=== PATIENT | female | born 1990 | race Caucasian/White ===

== ENCOUNTER 2022-02-18 14:07 | Emergency (ER) | payer OTHER, SELFPAY ==
--- NOTE | ~2022-02-18 | CT_ITS ---
EXAMINATION: CT ABDOMEN AND PELVIS WITHOUT CONTRAST CLINICAL INFORMATION: Bilateral flank pain and urinary symptoms COMPARISON: None TECHNIQUE: Multidetector volumetric imaging was performed from the superior aspect of the liver through the pubic symphysis. Sagittal and coronal reformatted images were obtained on the technologist's workstation. This CT examination was performed using dose optimization techniques as appropriate, variously including the following: *Automated exposure control *Adjustment of mA and/or kV according to patient size (this includes techniques or standardized protocols for targeted exams where dose is matched to indication/reason for exam; i.e. extremities or head) *Use of iterative reconstruction technique DLP: 544 mGy-cm FINDINGS: LUNG BASES: The visualized lung bases are unremarkable. LIVER, GALLBLADDER, AND BILIARY TREE: The liver is normal in size, shape, and attenuation. No focal hepatic lesion or biliary ductal dilatation is present. The gallbladder is unremarkable with no evidence of radiopaque gallstones, gallbladder wall thickening, or obvious pericholecystic inflammatory changes. PANCREAS: Unremarkable. SPLEEN: Unremarkable. ADRENAL GLANDS: Unremarkable. KIDNEYS AND URETERS: The kidneys are normal in size, shape, and attenuation. There is bilateral nephrolithiasis. Largest stone on the images in the lower pole measuring 0.8 cm. A few other small punctate calculi are present on the left. On the right, 2 tiny punctate calcifications are seen. Large calculus at the left lower pole measures 1156 Hounsfield units and is 8 cm from the posterior axillary line. No hydronephrosis, hydroureter, or ureteral calculi seen. No perinephric stranding. BLADDER: Bladder calculi are seen. A small solid parenchymal remnant is present. GASTROINTESTINAL TRACT: The small and large bowel are unremarkable. The appendix is unremarkable. ABDOMINAL WALL: No significant hernia is appreciated. Some mild diastases of the rectus muscles. LYMPH NODES: No retroperitoneal lymphadenopathy. VASCULAR: Unremarkable. PELVIC VISCERA: Normal anteverted uterus. An abnormal adnexal mass or free intraperitoneal fluid is not seen. OSSEOUS STRUCTURES: Unremarkable. CT/CT abdomen pelvis wo con IMPRESSION: 1. Bilateral nonobstructing nephrolithiasis with the largest stone measuring 5 mm on the left. 2. Other incidental findings described above including a small urachal remnant. Fleischner guidelines were followed.
[2022-02-18 14:49] VITALS: BP 117/69; PULSE 79; RESP 18; TEMP 37.1; O2SAT 98; BMI 34.0
[2022-02-18 16:32] LABS: MANUAL DIFF FLAG NO
[2022-02-18 16:34] LABS: Basophils Absolute Auto 0.1 X10*3/uL (0.0-0.2); Basophils Percent Auto 0.5 % (0-2); Eosinophils Absolute Auto 0.3 X10*3/uL (0.0-0.4); Eosinophils Percent Auto 2.4 % (0-4); Hematocrit 36.4 % (37.0-47.0); Hemoglobin 12.3 g/dl (12.0-16.0); Imm Gran Abs Auto 0.07 X10*3/uL (0.00-0.03); Imm Gran Pct Auto 0.6 % (0.0-0.4); Lymphocytes Absolute Auto 2.7 X10*3/uL (1.2-4.9); Mean Corpuscular HGB Conc 33.8 g/dl (31.0-35.0); Mean Corpuscular Hemoglobin 28.6 pg (27.0-33.0); Mean Corpuscular Volume 84.7 fL (80.0-98.0); Mean Platelet Volume 9.5 fL (9.4-12.3); Monocytes Absolute Auto 0.9 X10*3/uL (0.1-1.2); Monocytes Percent Auto 7.7 % (2-11); Neutrophils Percent Auto 63.8 % (45-73); Platelet Count 297 X10*3/uL (160-400); Red Cell Distribution Width 12.4 % (11.0-16.0)
[2022-02-18 16:40] LABS: Appearance Urine CLEAR; Color Urine STRAW; Glucose Urine UA NEG (NEG); Leukocyte Esterase Urine NEG (NEG); Nitrite Urine NEG (NEG); Specific Gravity - Urine <= 1.005 (1.005-1.025); Urine Blood NEG (NEG); Urine Ketones NEG (NEG); Urine Protein NEG (NEG-TRACE)
[2022-02-18 16:42] LABS: UPreg QC Valid YES; Urine Pregnancy NEGATIVE (NEGATIVE)
[2022-02-18 16:52] LABS: Alanine Aminotransferase 43 U/L (0-31); Albumin Level 4.7 g/dL (3.5-5.0); Alkaline Phosphatase 70 U/L (39-117); Anion Gap 15 (12-20); Aspartate Amino Transferase 23 U/L (5-31); Bilirubin Total 0.3 mg/dL (0.0-1.0); Blood Urea Nitrogen 12 mg/dL (9-16); Calcium 9.2 mg/dL (8.4-10.2); Carbon Dioxide 27 mmol/L (22-29); Chloride 104 mmol/L (96-108); Creatinine Clr Calc Pharmacy 118.8; Estimated Glomerular Filt Rate > 60; Glucose Random 90 mg/dL (60-115); Potassium 4.2 mmol/L (3.3-5.1); Sodium 142 mmol/L (135-145); Total Protein 7.5 g/dL (6.5-8.0)
--- NOTE | 2022-02-18 20:45 | ED.FEMALEGU ---
HPI - Female Genitourinary General Chief complaint: Urogenital-Female Stated complaint: back pain, uti? Time Seen by Provider: 02/18/22 17:36 Source: patient Mode of arrival: ambulatory Limitations: no limitations History of Present Illness HPI Narrative: 31 year old female with a history significant for renal stones not requiring lithotripsy presents to the ED with a complaint of bilateral lower back pain/ cramping since 10am this morning. She tells me that over the past two months she has had symptoms of bladder fullness, foul smelling urine, and urine retention, waking up multiple times at night to urinate and lower back pain and cramping. She's been diagnosed with and treated for 3 UTIs over this time without relief of symptoms. Due to symptom persistence she saw her PCP on Saturday for a UA which returned positive for UTI, pending culture. This morning she woke up with bilateral lower back pain and cramping with associated nausea and dizziness lasting for a few minutes. She called her PCPs office who advised her to come to the ED for further work up. Denies fever, dysuria, urgency, hematuria, urine discoloration, bowel/ bladder incontinence, vaginal discharge or itching, abdominal pain, nausea, vomiting, diarrhea, constipation or saddle paresthesia, pelvic pain. Denies history of gout or IVDU. Denies concern for STI. Patient had a PAP smear one month ago which returned unremarkable. Pertinent past history: recurrent UTIs Location of symptoms: low back Female Urogenital Radiation: Non-Radiating Related Data Allergies Allergy/AdvReac Type Severity Reaction Status Date / Time peach [PEACH] Allergy Severe HIVES Unverified 03/31/20 19:16 sulfamethoxazole Allergy Intermediate RASH AND Unverified 03/31/20 19:16 [From BACTRIM] FEVER trimethoprim [From BACTRIM] Allergy Intermediate RASH AND Unverified 03/31/20 19:16 FEVER HADOCK Allergy Severe PROPERTY COORDINATOR Uncoded 03/31/20 19:16 TOLD PT NOT TO HAVE HADOCK Bactrim Allergy Unknown rash Uncoded 06/20/18 00:00 Review of Systems Review of Systems: Constitutional : No Weight loss, No Fever, No Chills, No Fatigue, No Malaise ENT/Mouth : No sore throat, No Rhinorrhea Eyes: No Eye Pain, No Swelling, No Redness Cardiovascular : No Chest Pain, No SOB, No Dyspnea on Exertion, No Orthopnea, No Edema, No Palpitations Respiratory : No Cough, No Sputum, No Wheezing Gastrointestinal : No Nausea, No Vomiting, No Diarrhea, No Constipation, No abdominal Pain, No Hematochezia, No Melena Genitourinary : No Dysuria, No Urinary Frequency, No Hematuria, +urinary retention, + foul smelling urine, + bladder fullness Musculoskeletal : No joint pain, No Myalgias, No Joint Swelling, +low back pain (bilateral) Skin : No Skin Lesions, No rash Neuro : No Weakness, No Numbness, No Dizziness, No Headache All other systems reviewed and are negative Yes all other systems are reviewed and are negative [facility], [facility] Past Medical History Attestation statement: The following information was validated with the patient. Source: old records reviewed and nursing notes reviewed Social History Social History Advance Directives: No Advance Directives Information Provided: No Patient : No Physical Exam Vital Signs: Vital Signs: Last Vital Signs Temp 98.6 F 02/18/22 20:56 Pulse 68 02/18/22 20:56 Resp 16 02/18/22 20:56 BP 120/71 02/18/22 20:56 Pulse Ox 99 02/18/22 20:56 O2 Del Method 02/18/22 20:56 BMI result Body Mass Index 34.0 VSS Appearance: Alert.? Oriented X3.? No acute distress.? Head: Normocephalic, atraumatic, no step-offs or deformities Eyes: Pupils equal, round and reactive to light.? Neck: Normal inspection.? Neck supple.? CVS: Normal heart rate and rhythm.? Pulses normal.? Respiratory: No respiratory distress.? Breath sounds normal.? Abdomen: Soft and nontender.?nondistended Skin: Skin warm and dry.? Normal skin color.? Normal skin turgor.? Extremities: No lower extremity edema.? No calf ttp. 5/5 strength to bilateral upper and lower extremities. 2+ patellar reflexes equal bilateral. Back: No midline tenderness, no C-spine tenderness, full range of motion, no CVA tenderness bilaterally, able to stand and ambulate without issue Neuro: Oriented X 3.? No motor deficit.? No sensory deficit. Course Reevaluation(s) Reevaluation #1: CBC with slight leukocytosis, chemistry with no acute electrolyte abnormalities. Urine clean, negative. No signs of acute urinary retention at this time. Time: 00:50 Reevaluation #2: CT of the abdomen and pelvis with stones noted within the bladder, and bilateral nonobstructing nephrolithiasis. Patient likely passing kidney stones. Also incidental finding of a small urachal remnant noted, I advised patient to follow-up with urology for this, symptoms consistent with this. At this time will discharge patient home advised to take ibuprofen every 6 hours, Tylenol every 4 as needed for pain or discomfort. Advised for prompt PCP and urology follow-up. I also advised her to drink plenty of fluids. No need for antibiotics at this time. I did discuss this case w/ my attending who agree w/ dx and tx plan. Time: 01:18 MDM - Female Genitourinary MDM Narrative Medical decision making narrative: 2013 31 year old female presenting with two months of bladder fullness, foul smellling urine, and urinary retention X2 months . History of renal stones during , not requiring lithotripsy. Physical exam benign. No saddle paresthesia or bowel/ bladder incontinence. History and physical examination concerning for possible cystitis, UTI or pyelo. Unlikely cauda equina or epidural abscess. Patient denies any pelvic pain, vaginal bleeding, unlikely that this is ovarian torsion. Plan basic labs, UA, bladder scan. Medical Records Attestation: I reviewed the patient's medical records. Lab Data Attestation: I reviewed the patient's lab results. Result diagrams: 02/18/22 16:26 02/18/22 16:26 Labs: Lab Results 02/18/22 02/18/22 02/18/22 Range/Units 16:26 16:26 16:26 WBC 11.0 H (4.8-10.8) X10*3/uL RBC 4.30 (4.20-5.50) X10*6/uL Hgb 12.3 (12.0-16.0) g/dl Hct 36.4 L (37.0-47.0) % MCV 84.7 (80.0-98.0) fL MCH 28.6 (27.0-33.0) pg MCHC 33.8 (31.0-35.0) g/dl RDW 12.4 (11.0-16.0) % Plt Count 297 (160-400) X10*3/uL MPV 9.5 (9.4-12.3) fL Immature Gran % (Auto) 0.6 H (0.0-0.4) % Neut % (Auto) 63.8 (45-73) % Lymph % (Auto) 25.0 (20-40) % [place] % (Auto) 7.7 (2-11) % Eos % (Auto) 2.4 (0-4) % Baso % (Auto) 0.5 (0-2) % Lymph # (Auto) 2.7 (1.2-4.9) X10*3/uL [place] # (Auto) 0.9 (0.1-1.2) X10*3/uL Eos # (Auto) 0.3 (0.0-0.4) X10*3/uL Baso # (Auto) 0.1 (0.0-0.2) X10*3/uL Abs Immat Gran (auto) 0.07 H (0.00-0.03) X10*3/uL Absolute Neuts (auto) 7.0 (2.0-8.3) x10*3/uL Absolute Nucleated RBC 0.000 (0.0-0.012) X10*3/uL Nucleated RBC % (auto) 0.0 (0.0-0.2) /100WBC Sodium 142 (135-145) mmol/L Potassium 4.2 (3.3-5.1) mmol/L Chloride 104 (96-108) mmol/L Carbon Dioxide 27 (22-29) mmol/L Anion Gap 15 (12-20) BUN 12 (9-16) mg/dL Creatinine 0.67 (0.5-1.4) mg/dL Estim Creat Clear Calc 118.8 Estimated GFR > 60 Random Glucose 90 (60-115) mg/dL Calcium 9.2 (8.4-10.2) mg/dL Total Bilirubin 0.3 (0.0-1.0) mg/dL AST 23 (5-31) U/L ALT 43 H (0-31) U/L Alkaline Phosphatase 70 (39-117) U/L Total Protein 7.5 (6.5-8.0) g/dL Albumin 4.7 (3.5-5.0) g/dL Beta HCG, Quant < 2 mIU/mL Urine Color STRAW Urine Appearance CLEAR Urine pH 7.0 (5.0-8.0) Ur Specific Hensley <= 1.005 (1.005-1.025) Urine Protein NEG (NEG-TRACE) MG/DL Urine Glucose (UA) NEG (NEG) MG/DL Urine Ketones NEG (NEG) MG/DL Urine Blood NEG (NEG) Urine Nitrite NEG (NEG) Ur Leukocyte Esterase NEG (NEG) Urine Test (NEGATIVE) 02/18/22 Range/Units 16:26 WBC (4.8-10.8) X10*3/uL RBC (4.20-5.50) X10*6/uL Hgb (12.0-16.0) g/dl Hct (37.0-47.0) % MCV (80.0-98.0) fL MCH (27.0-33.0) pg MCHC (31.0-35.0) g/dl RDW (11.0-16.0) % Plt Count (160-400) X10*3/uL MPV (9.4-12.3) fL Immature Gran % (Auto) (0.0-0.4) % Neut % (Auto) (45-73) % Lymph % (Auto) (20-40) % [place] % (Auto) (2-11) % Eos % (Auto) (0-4) % Baso % (Auto) (0-2) % Lymph # (Auto) (1.2-4.9) X10*3/uL [place] # (Auto) (0.1-1.2) X10*3/uL Eos # (Auto) (0.0-0.4) X10*3/uL Baso # (Auto) (0.0-0.2) X10*3/uL Abs Immat Gran (auto) (0.00-0.03) X10*3/uL Absolute Neuts (auto) (2.0-8.3) x10*3/uL Absolute Nucleated RBC (0.0-0.012) X10*3/uL Nucleated RBC % (auto) (0.0-0.2) /100WBC Sodium (135-145) mmol/L Potassium (3.3-5.1) mmol/L Chloride (96-108) mmol/L Carbon Dioxide (22-29) mmol/L Anion Gap (12-20) BUN (9-16) mg/dL Creatinine (0.5-1.4) mg/dL Estim Creat Clear Calc Estimated GFR Random Glucose (60-115) mg/dL Calcium (8.4-10.2) mg/dL Total Bilirubin (0.0-1.0) mg/dL AST (5-31) U/L ALT (0-31) U/L Alkaline Phosphatase (39-117) U/L Total Protein (6.5-8.0) g/dL Albumin (3.5-5.0) g/dL Beta HCG, Quant mIU/mL Urine Color Urine Appearance Urine pH (5.0-8.0) Ur Specific Hensley (1.005-1.025) Urine Protein (NEG-TRACE) MG/DL Urine Glucose (UA) (NEG) MG/DL Urine Ketones (NEG) MG/DL Urine Blood (NEG) Urine Nitrite (NEG) Ur Leukocyte Esterase (NEG) Urine Test NEGATIVE (NEGATIVE) Critical Care Time Critical Care Time Critical Care Time: No Discharge Plan Discharge Clinical Impression: Cystitis, Flank pain, Nephrolithiasis, Urachal remnant Patient Disposition: Home, Self-Care Instructions: Urinary Tract Infection in Women (ED), Acute Urinary Retention in Women (ED), Flank Pain (ED) Additional Instructions: Take your medications as prescribed. If you were prescribed antibiotics today, it is important that you take your medication to their entirety, do not skip any doses, do not finish them early. Follow-up with your primary care provider this week. Return to the emergency department with new or worsening symptoms. Such as fevers, chills, chest pain, shortness of breath, nausea, vomiting, dizziness, headache, vision changes, lethargy In case of emergency call 911 There is still some lab tests pending at this time. We will call you if they are positive. Urine was negative. Labs were reassuring. We also noted that there were small stones in the bladder early you likely have been passing kidney stones which could again at explain your flank discomfort. Please follow-up with urology as soon as possible. You can take ibuprofen every 6 hours, Tylenol every 4 hours as needed for pain or discomfort. CT/CT abdomen pelvis wo con IMPRESSION: 1.? Bilateral nonobstructing nephrolithiasis with the largest stone measuring 5 mm on the left. 2. ? Other incidental findings described above including a small urachal remnant. ? Fleischner guidelines were followed. Referrals: Hany Arec MD [Physician] - 2 days PhysicianEileen [Primary Care Provider] - 2 days
[2022-02-18 20:56] VITALS: BP 120/71; PULSE 68; RESP 16; TEMP 37; O2SAT 99
[2022-02-18 21:32] LABS: HCG Quantitative < 2 mIU/mL
[2022-02-19] MEDS: Ketorolac Tromethamine 30 MG/ML VIAL IM (01:35)
[2022-02-19 02:25] LABS: CT PCR NOT DETECTED (Not Detect.); NG PCR NOT DETECTED (Not Detect.)
[2022-02-19 08:41] LABS: BV Int Neg Control Negative (Negative); BV Int Pos Control Positive (Positive)
== END 2022-02-19 01:42 | disposition home or self-care (01) ==
PROVIDERS: Physician Assistant; Student in an Organized Health Care Education/Training Program; Emergency Provider Emergency Medicine Emergency Medical Services
DX: N30.90 Cystitis, unspecified without hematuria (principal); B96.1 Klebsiella pneumoniae [K. pneumoniae] as the cause of diseases classified elsewhere; N20.0 Calculus of kidney; Q64.4 Malformation of urachus; R10.9 Unspecified abdominal pain; Z87.440 Personal history of urinary (tract) infections
CPT/HCPCS: 36415; 51798; 74176; 80053; 81003; 81025; 84702; 85025; 87086; 87088; 87186; 87480; 87491; 87510; 87591; 87660; 96372; 99284; J1885

== ENCOUNTER 2022-05-16 12:49 | Outpatient (REF) | payer OTHER, SELFPAY ==
--- NOTE | ~2022-05-16 | US_ITS ---
EXAMINATION: US RETROPERITONEAL COMPLETE (RENAL) CLINICAL INFORMATION: UTI/kidney stone. COMPARISON: CT abdomen and pelvis without contrast 02/19/2022. TECHNIQUE: Real-time imaging of the kidneys and bladder. FINDINGS: RIGHT KIDNEY: 10.9 x 5.0 x 6.0 cm (SAG x AP x TRV). The kidney is normal in size, contour, and echogenicity. Renal cortical thickness is normal. There are 2 small echogenic densities measuring 2 and 3 mm in the mid and upper pole suggestive of small stones. No focal parenchymal lesions or hydronephrosis. LEFT KIDNEY: 10.3 x 4.9 x 6.0 cm (SAG x AP x TRV). The kidney is normal in size, contour, and echogenicity. Renal cortical thickness is normal. There is a 3 x 4 mm echogenic density in the lower pole suggestive of a stone. No focal parenchymal lesions or hydronephrosis. BLADDER: Well distended and normal. Bilateral ureteral jets are demonstrated. Prevoid bladder volume is 159 mL. Postvoid bladder volume is 11.2 mL. There is a small cyst anterior superior to the bladder measuring 1.7 x 0.6 x 1.1 cm probably representing a urachal remnant.. US/US retroperitoneal comp IMPRESSION: Small bilateral renal stones.
== END 2022-05-16 12:50 | disposition home or self-care (01) ==
LOC: HO.HMGCX 12:49
PROVIDERS: PCP Family Medicine; Visit Provider Urology
DX: N20.0 Calculus of kidney (principal); Z87.440 Personal history of urinary (tract) infections
CPT/HCPCS: 76770